=== PATIENT | male | born 1950 | race Caucasian/White ===

== ENCOUNTER → 2020-10-16 | Day surgery (SDC) | payer MEDICARE, BC ==
[~2020-10-16] MED LIST: ALBUTEROL2.5 MG/3 M INH; ASPIR 8181 MG PO; ASPIRIN81 MG PO; BRILINTA90 MG PO; CARVEDILOL3.125 MG PO; CORDARONE 200M200 MG PO; COREG 3.125M3.125 MG PO; COZAAR50 MG PO; ENOXAPARIN40 MG/0.4 SC; ENTRESTO 24 MG1 EACH PO; ENTRESTO PO; FAMOTIDINE20 MG PO; FLOMAX 0.4 MG0.4 MG PO; FUROSEMIDE40 MG PO; HUMALOG 10100 UNITS/ SC; IMDUR ER TAB 3030 MG PO; IPRAT-ALBUT 0.5-3 ML NEB; KLONOPIN TAB 00.5 MG PO; LASIX20 MG PO; LASIX40 MG PO; LEVOTHYROXINE50 MC1 PO; LIPITOR40 MG PO; LOPID TAB 600600 MG PO; MEXILETINE HCL150 MG PO; NITROSTAT 0.40.4 MG SL; PACERONE200 MG PO; PLAVIX75 MG PO; RAPAFLO8 MG PO; ROBITUSSIN DM UD5 ML PO; SYNTHROID 25 M25 MCG PO; VITAMIN B-1000 MCG/M IM; VITAMIN D1000 UNIT PO; ZYVOX600 MG PO
== END | disposition home or self-care (01) ==
LOC: OR 12:10
DX: N40.1 Benign prostatic hyperplasia with lower urinary tract symptoms (principal); N13.8 Other obstructive and reflux uropathy; E78.5 Hyperlipidemia, unspecified; I25.2 Old myocardial infarction; I10 Essential (primary) hypertension; Z88.2 Allergy status to sulfonamides; Z79.899 Other long term (current) drug therapy; Z83.3 Family history of diabetes mellitus
CPT/HCPCS: J7040; J7120

== ENCOUNTER 2021-01-08 22:08 | Inpatient (IN) | payer MEDICARE, BC ==
[~2021-01-08] VITALS: Ht 185.4 cm; Wt 92.3 kg
[~2021-01-08 22:08] MED LIST changes: -ALBUTEROL2.5 MG/3 M INH; -ASPIRIN81 MG PO; -CARVEDILOL3.125 MG PO; -ENOXAPARIN40 MG/0.4 SC; -FAMOTIDINE20 MG PO; -HUMALOG 10100 UNITS/ SC; -IPRAT-ALBUT 0.5-3 ML NEB; -KLONOPIN TAB 00.5 MG PO; -LEVOTHYROXINE50 MC1 PO; -MEXILETINE HCL150 MG PO; -PACERONE200 MG PO; -ROBITUSSIN DM UD5 ML PO; -ZYVOX600 MG PO
[2021-01-08 22:21] LABS: RED BLOOD COUNT 3.62 M/UL (4.20-5.50)
[2021-01-08 22:24] LABS: WHITE BLOOD COUNT 30.8 K/UL (4.5-11.0)
[2021-01-08 22:46] LABS: BUN/CREATININE RATIO 16 (0-10)
[2021-01-09] MEDS ORDERED: ASPIRIN81 MG PO (05:34)
[2021-01-09] MEDS ORDERED: PACERONE200 MG PO (05:38)
[2021-01-09] MEDS ORDERED: CARVEDILOL3.125 MG PO (05:39)
[2021-01-09] MEDS ORDERED: LEVOTHYROXINE50 MC1 PO (05:39)
[2021-01-09] MEDS ORDERED: MEXILETINE HCL150 MG PO (05:40)
[2021-01-09 09:13] LABS: WHITE BLOOD COUNT 20.6 K/UL (4.5-11.0)
[2021-01-09 09:14] LABS: RED BLOOD COUNT 2.84 M/UL (4.20-5.50)
[2021-01-09 09:16] LABS: HEMOGLOBIN 8.5 gm/dl (14.0-17.5)
[2021-01-10 05:02] LABS: HEMOGLOBIN 8.5 gm/dl (14.0-17.5); RED BLOOD COUNT 2.87 M/UL (4.20-5.50)
[2021-01-10 05:05] LABS: WHITE BLOOD COUNT 15.1 K/UL (4.5-11.0)
[2021-01-10 05:32] LABS: BUN/CREATININE RATIO 19 (0-10)
[2021-01-10 23:56] LABS: BORDETELLA PARAPERTUSSIS Not Detected (Not Detectd); BORDETELLA PERTUSSIS Not Detected (Not Detectd); CHLAMYDIA PNEUMONIAE Not Detected (Not Detectd); CORONAVIRUS HKU1 Not Detected (Not Detectd); CORONAVIRUS NL63 Not Detected (Not Detectd); CORONAVIRUS OC43 Not Detected (Not Detectd); CORONOAVIRUS 229E Not Detected (Not Detectd); HUMAN METAPNEUMOVIRUS Not Detected (Not Detectd); HUMAN RHINOVIRUS/ENTEROVIRUS Not Detected (Not Detectd); INFLUENZA A Not Detected (Not Detectd); INFLUENZA B Not Detected (Not Detectd); MYCOPLASMA PNEUMONIAE Not Detected (Not Detectd); PARAINFLUENZA VIRUS 1 Not Detected (Not Detectd); PARAINFLUENZA VIRUS 2 Not Detected (Not Detectd); PARAINFLUENZA VIRUS 3 Not Detected (Not Detectd); PARAINFLUENZA VIRUS 4 Not Detected (Not Detectd); RESPIRATORY SYNCYTIAL VIRUS Not Detected (Not Detectd)
[2021-01-11 00:54] LABS: SARS-CoV-2 NOT DETECTED (Not Detectd)
[2021-01-11 04:23] LABS: RED BLOOD COUNT 2.69 M/UL (4.20-5.50); WHITE BLOOD COUNT 14.5 K/UL (4.5-11.0)
[2021-01-11 04:38] LABS: BUN/CREATININE RATIO 15 (0-10)
[2021-01-12 05:14] LABS: HEMOGLOBIN 8.4 gm/dl (14.0-17.5); RED BLOOD COUNT 2.81 M/UL (4.20-5.50); WHITE BLOOD COUNT 13.4 K/UL (4.5-11.0)
[2021-01-12 05:32] LABS: BUN/CREATININE RATIO 13 (0-10)
[2021-01-13 02:21] LABS: HEMOGLOBIN 8.1 gm/dl (14.0-17.5); RED BLOOD COUNT 2.74 M/UL (4.20-5.50); WHITE BLOOD COUNT 12.7 K/UL (4.5-11.0)
[2021-01-13 02:43] LABS: BUN/CREATININE RATIO 14 (0-10)
[2021-01-14 03:00] LABS: HEMOGLOBIN 8.5 gm/dl (14.0-17.5); RED BLOOD COUNT 2.82 M/UL (4.20-5.50); WHITE BLOOD COUNT 11.7 K/UL (4.5-11.0)
[2021-01-14 03:59] LABS: BUN/CREATININE RATIO 15 (0-10)
[2021-01-15 03:20] LABS: HEMOGLOBIN 8.4 gm/dl (14.0-17.5); RED BLOOD COUNT 2.79 M/UL (4.20-5.50); WHITE BLOOD COUNT 11.4 K/UL (4.5-11.0)
[2021-01-15 03:38] LABS: BUN/CREATININE RATIO 14 (0-10)
[2021-01-16 04:01] LABS: RED BLOOD COUNT 2.72 M/UL (4.20-5.50); WHITE BLOOD COUNT 9.2 K/UL (4.5-11.0)
[2021-01-16 04:27] LABS: BUN/CREATININE RATIO 13 (0-10)
--- NOTE | 2021-01-16 11:05 | NUR ---
0910: CONSENT FOR LEFT LUNF THORACENTESIS SIGN BY PATIENTS PER PATIENTS REQUEST. DR HDZ PRESENT AT BEDSIDE. 0918: TIME OUT PERFORMED PRIOR TO BEDSIDE PROCEDURE. 0919: PATIENT POSITIONED FOR PROCEDURE, DR HDZ USES U/S AND ANTHONY SITE. 0920: DR HDZ BEGINS PROCEDURE. 0925: PROCEDURE ENDS, SPECIMENS OBTAINED, LABELED AND VERIFIED IN ROOM WITH PATIENT. SENT TO LAB. 0930: PATIENT MOVED TO CHAIR PER HIS REQUEST, DENIES ANY C/O PAIN OR DISCOMFORT. SPO2 98%.
[2021-01-16] MEDS ORDERED: ALBUTEROL2.5 MG/3 M INH (13:32)
[2021-01-16] MEDS ORDERED: ROBITUSSIN DM UD5 ML PO (13:32)
[2021-01-16] MEDS ORDERED: ZYVOX600 MG PO (13:32)
[2021-01-16] MEDS ORDERED: IPRAT-ALBUT 0.5-3 ML NEB (13:32)
[2021-01-16] MEDS ORDERED: ENOXAPARIN40 MG/0.4 SC (13:32)
[2021-01-16] MEDS ORDERED: KLONOPIN TAB 00.5 MG PO (13:32)
[2021-01-16] MEDS ORDERED: FAMOTIDINE20 MG PO (13:32)
[2021-01-16] MEDS ORDERED: HUMALOG 10100 UNITS/ SC (13:32)
[2021-01-17 14:12] LABS: ORGANISM ID Not indicated. (.); SPECIMEN SOURCE Urine (.); STREPTOCOCCUS PNEUMONIAE AG Negative (Negative)
== END 2021-01-16 21:36 | disposition short-term general hospital (02) | DRG 871 ==
LOC: ER1 22:08 → M/S 01-09 01:10 → CDU 01-09 01:10 → PROG CARE 01-09 01:10 → M/S 01-13 12:44
PROVIDERS: Family Medicine; Internal Medicine; Internal Medicine Pulmonary Disease; ADMIT Internal Medicine
PROC: 5A09557 Assistance with Respiratory Ventilation, Greater than 96 Consecutive Hours, Continuous Positive Airway Pressure (ICD-10-PCS; 2021-01-09)
PROC: 0W9B3ZZ Drainage of Left Pleural Cavity, Percutaneous Approach (ICD-10-PCS; principal; 2021-01-16)
DX: A41.9 Sepsis, unspecified organism (principal); I50.23 Acute on chronic systolic (congestive) heart failure; J96.02 Acute respiratory failure with hypercapnia; J85.1 Abscess of lung with pneumonia; J95.89 Other postprocedural complications and disorders of respiratory system, not elsewhere classified; J90 Pleural effusion, not elsewhere classified; N17.9 Acute kidney failure, unspecified; R65.20 Severe sepsis without septic shock; Y83.8 Other surgical procedures as the cause of abnormal reaction of the patient, or of later complication, without mention of misadventure at the time of the procedure; I25.10 Atherosclerotic heart disease of native coronary artery without angina pectoris; I11.0 Hypertensive heart disease with heart failure; I49.5 Sick sinus syndrome; N40.0 Benign prostatic hyperplasia without lower urinary tract symptoms; D53.9 Nutritional anemia, unspecified; R33.9 Retention of urine, unspecified; I25.5 Ischemic cardiomyopathy; E83.51 Hypocalcemia; E11.65 Type 2 diabetes mellitus with hyperglycemia; Z20.822 Contact with and (suspected) exposure to COVID-19; E78.5 Hyperlipidemia, unspecified; Z90.79 Acquired absence of other genital organ(s); Z90.49 Acquired absence of other specified parts of digestive tract; Z88.6 Allergy status to analgesic agent; Z88.2 Allergy status to sulfonamides; Z82.49 Family history of ischemic heart disease and other diseases of the circulatory system; Z80.9 Family history of malignant neoplasm, unspecified; Z72.0 Tobacco use; Z91.018 Allergy to other foods; Z79.4 Long term (current) use of insulin; Z95.810 Presence of automatic (implantable) cardiac defibrillator
CPT/HCPCS: 0240U; 36415; 36600; 71045; 71250; 71275; 76604; 80048; 80053; 80202; 82550; 82553; 82803; 82962; 83036; 83605; 83615; 83735; 83874; 83880; 84100; 84484; 85025; 85027; 85379; 85610; 86140; 87040; 87070; 87077; 87081; 87186; 87205; 87278; 87633; 87899; 92610; 93005; 93971; 94640; 94660; 94664; 94760; 96365; 96367; 97110; 97110-GP-CQ; 97116-GP-CQ; 97161; 97166; 97530-GP-CQ; 99285; J0456; J0692; J1650; J1940; J2185; J2543; J3370; J7030; J7070; Q9967